=== PATIENT | male | born 1975 | race Caucasian/White ===

== ENCOUNTER 2020-06-06 07:12 | Observation (INO) | payer SELFPAY ==
[2020-06-06] VITALS (40 sets, daily range): BP systolic 115–158; BP diastolic 70–131; PULSE 83–163; RESP 13–28; TEMP 36.3–37; O2SAT 88–96; BMI 40.6
[2020-06-06 07:29] LABS: Basophils # 0.1 10^3/uL (0.0-0.1); Basophils % 0.6 %; Eosinophils % 0.2 %; Hematocrit 52.7 % (42.0-52.0); Hemoglobin 17.9 g/dL (11.7-16.6); Lymphocytes # 0.5 10^3/uL (0.8-4.8); Lymphocytes % 3.3 %; Mean Corpuscular Volume 88.4 fL (80-94); Mean Platelet Volume 10.4 fL (7.4-10.4); Monocytes # 0.9 10^3/uL (0.2-0.9); Monocytes % 6.2 %; Neutrophils # 12.33 10^3/uL (1.8-7.7); Neutrophils % 89.3 %; Nucleated Red Blood Cells % 0 %; Platelet Count 332 10^3/cmm (130-400); Red Blood Count 5.96 10^6/uL (4.1-5.3); Red Cell Distribution Width 11.8 % (12.1-15.1); White Blood Count 13.8 10^3/uL (4.0-10.0)
--- NOTE | 2020-06-06 07:29 | XRR_ITS ---
PROCEDURE INFORMATION: Exam: XR Chest Exam date and time: 06/06/2020 7:41 AM Age: 44 years old Clinical indication: Chest pain; Type not specified; Patient HX: Diarrhea, vomiting, bloated, abd pain; Additional info: Chest pain/tachycardia TECHNIQUE: Imaging protocol: XR of the chest Views: 1 view. COMPARISON: No relevant prior studies available. FINDINGS: Lungs: Low lung volumes. There is a streaky airspace opacity in the left lower lobe, which may represent atelectasis or pneumonia in the adequate clinical setting. No pleural effusion or pneumothorax. Pleural spaces: See Lungs finding. Heart/Mediastinum: Unremarkable. No cardiomegaly. Bones/joints: Unremarkable. XR/XR chest 1V portable [id number] IMPRESSION: Left lower lobe atelectasis versus pneumonia, clinical correlation is recommended.
[2020-06-06] MEDS: aspirin 81 mg Chew Tablet 324 MG PO (07:30)
--- NOTE | 2020-06-06 07:30 | ECG_ITS ---
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 Measurements Intervals [place] Rate: 160 P: NC: QRS: -12 QRSD: 105 T: 35 QT: 293 QTc: 478 Interpretive Statements ATRIAL FLUTTER/TACHYCARDIA WITH RAPID VENTRICULAR RESPONSE NONSPECIFIC T-WAVE ABNORMALITY CRITICAL TEST RESULT No previous ECG available for comparison Electronically Signed On 06-06-2020 19:15:20 CDT by Jeanmarie Calderon M.D. [id number]
[2020-06-06] MEDS: ondansetron 2 mg/ML SDV 2 mL 4 MG IVP (07:31)
[2020-06-06] MEDS: sodium chloride 0.9% 1,000 ML 999 ML IV ×2 (07:31→09:21)
--- NOTE | 2020-06-06 07:31 | CT_ITS ---
WS: [id number] CTA CHEST WITH CT ABDOMEN AND PELVIS. HISTORY: Abdominal pain with weakness. TECHNIQUE: CT angiogram is performed through the chest. Additional imaging is performed through the a bdomen and pelvis with IV contrast. Sagittal and coronal reformats have been submitted. MIP imaging also reviewed. All CT scans at [facility] use at least one of these dose optimization tech niques: automated exposure control; mA and/or kV adjustment per patient size (includes targeted exams where dose is matched to clinical indication); or iterative reconstruction. Contrast: Omnipaque 350; 95 cc IV. DLP: 4674.03 mGy.cm COMPARISON: None. Chest CTA: Suboptimal opacification of the pulmonary arteries despite multiple injection attempts. No rmal size pulmonary artery. There are no central filling defects. No RIGHT heart strain or secondary findings of pulmonary emboli. Normal-sized thoracic aorta. No dissection or aneurysm. Heart size is n ormal. No pericardial or pleural effusions. No adenopathy. There is mild motion artifact obscuring de tail of the lungs. No pulmonary nodule or mass. Bronchovascular tree is negative. RIGHT gynecomastia. Abdomen CT: Mild hepatic steatosis and hepatomegaly. Normal gallbladder, spleen and pancreas and adre nal glands. There are a few scattered hypodensities within each kidney which are too small to charact erize. There is a nonobstructing calcification inferior pole LEFT renal pelvis which is nonobstructin g. No significant perinephric stranding and no hydronephrosis. Aorta is normal. No adenopathy or asci pierre. There is marked fluid distention of the stomach. The appendix is normal. Very minimal fluid distentio n of the small bowel. Several diverticula in the colon. There is a focal area of very mild inflammati on and wall thickening involving the proximal sigmoid colon. Pelvic CT: No free fluid or adenopathy. Negative urinary bladder. Thoracolumbar scoliosis. No osteoblastic or osteolytic bone disease. CT/CT angio chest w abd pel w con IMPRESSION: 1. Limited evaluation of the pulmonary arteries. No large central pulmonary em bolism. 2. Mild distal colonic diverticulosis with a focal area of mild acute divertic ulitis in the proximal sigmoid. Recommend evaluation by colonoscopy after acut e episode has resolved to exclude underlying focal neoplasm. 3. No ascites. 4. Moderate fluid distention of the stomach. 5. Normal appendix. 6. Hepatic steatosis. 7. RIGHT gynecomastia.
--- NOTE | 2020-06-06 07:34 | ED_ITS ---
HPI - Abdominal Pain General: Chief Complaint: Abdominal Pain Stated Complaint: N/V/ DIARRHEA Time Seen by Provider: 06/06/20 07:15 History of Present Illness: HPI narrative: 44-year-old male presents emergency room with complaint of abdominal pain with nausea vomiting and diarrhea that started last night. Pain is very positional semireclined or bent over his best setting up rate seems to be the worst. On presentation his blood pressure is stable but he is very tachycardic with a sinus tachycardia. He has no real distinct chest pain. He is not been short of breath or wheezing. He denies any medic easy melena hematemesis or coffee-ground no dysuria urgency or frequency. MD elicited complaint: abdominal pain Onset (ago): hour(s) Pain Consistency: intermittent Location: Epigastric and LUQ Severity: severe Quality: cramping Radiation: none Migration to: no migration Exacerbating factors: nothing Relieving factors: nothing Associated Symptoms: Reports GI cramping, nausea, poor appetite and vomiting; Denies anorexia, belching, bloating, change in bowel habits, change in stool character, chills, coffee ground emesis, constipation, diarrhea, dyspepsia, dysuria, excessive flatus, fever(s), heartburn, hematochezia, hematuria, hematemesis, fecal incontinence, loose stools, melena and syncope Review of Systems Const: Denies: fever(s) or chills ENMT: Denies: throat pain, ear or mastoid pain, nasal discharge or nasal congestion Card: Denies: syncope Resp: Denies: dyspnea, productive cough or non-productive cough GI: Reports: nausea, vomiting and GI cramping; Denies: hematemesis, coffee ground emesis, heartburn, diarrhea, constipation, bloating, belching, excessive flatus, fecal incontinence, change in bowel habits, change in stool character, hematochezia or melena : Denies: dysuria or hematuria Skin/Breast: Denies: rash or pruritus PFSH ED PFSH: Medical History Sleep apnea Family History (Updated 06/06/20 @ 09:47 by Soren Ralph MD) Other Cancer Diabetes Social History (Updated 06/06/20 @ 09:48 by Soren Ralph MD) Smoking and tobacco status: never smoked Alcohol intake: never Physical Exam Const: COMMON NORMALS: average body habitus, patient oriented x3 and alert GENERAL APPEARANCE: cooperative, comfortable, well kempt and well developed NUTRITIONAL APPEARANCE: obese ORIENTATION/CONSCIOUSNESS: Yes awake, Yes oriented to person and Yes oriented to place HENMT: COMMON NORMALS: normocephalic, atraumatic and EAC's normal HEAD & SCALP: normocephalic and atraumatic EXTERNAL AUDITORY CANAL: EAC's normal Neck/C-Spine: COMMON NORMALS: no meningeal signs Resp: COMMON NORMALS: normal respiratory effort, No retractions, No use of accessory muscles and clear to auscultation bilaterally AUSCULTATION: clear to auscultation bilaterally Cardio: COMMON NORMALS: regular rhythm RATE: tachycardic RHYTHM: regular rhythm HEART SOUNDS: no murmurs GI: COMMON NORMALS: Normal to inspection, nondistended, normoactive bowel sounds present, Soft to palpation and No hepatosplenomegaly present PALPATION: Yes Soft to palpation and Yes No hepatosplenomegaly present : COMMON NORMALS: Yes no CVA tenderness BLADDER/KIDNEY EXAM: Yes no CVA tenderness Back/Pelvis: COMMON NORMALS: no CVA tenderness LUMBAR SPINE/LOWER BACK: Yes normal to inspection Extremity: NARRATIVE EXTREMITY EXAM: Femoral pulses equal bilaterally Neuro: COMMON NORMALS: patient oriented x3 SENSORIUM/ORIENTATION: Yes alert, Yes oriented to person and Yes oriented to place MENINGEAL SIGNS: Yes no meningeal signs Psych: APPEARANCE: Yes well kempt Skin: COMMON NORMALS: no rashes or lesions noted and turgor normal GENERAL SKIN EXAM: no rashes or lesions noted and turgor normal Course Vital Signs: Vital signs: Vital Signs Temperature 97.3 F L 06/06/20 07:15 Pulse Rate 122 H 06/06/20 08:35 Respiratory Rate 13 06/06/20 08:20 Blood Pressure 130/110 06/06/20 08:35 Pulse Oximetry 94 06/06/20 08:35 MDM - Abdominal Pain MDM Narrative: Medical decision making narrative: Patient appears to have a diverticulitis. Radiographically it appears rather mild. It is a little concerning with his tachycardia. His blood pressure initially was read as hypertensive however follow-up with a more properly fitting cough he is normotensive. His blood pressure did improve slightly with fluids. Initially was concerned about with his elevated blood pressure and his description of his pain dissection or aneurysm so he was started esmolol to control rate and blood pressure. When that was ruled out the esmolol was stopped. The initial EKG was read as A. fib flutter I do not believe he was ever in A. fib flutter and he did appear to have a P waves on that EKG. We are going to admit him with Cipro and Flagyl antiemetics as needed continue IV fluids we did get an ABG and serum ketones both of which are negative. His lactate is slightly elevated at 3.3. We have discussed with Dr. Mckeon will admit to the floor. His blood sugar is 3 approximately 370 concerning for diabetes will need to be rechecked in the presence of an acute infection cannot definitively diagnose diabetes at this point although it is highly likely discussed that with the patient as well. Lab Data: Labs: Lab Results 06/06/20 06/06/20 06/06/20 Range/Units 07:23 07:23 07:23 WBC 13.8 H (4.0-10.0) 10^3/ uL RBC 5.96 H (4.1-5.3) 10^6/u L Hgb 17.9 H (11.7-16.6) g/dL Hct 52.7 H (42.0-52.0) % MCV 88.4 (80-94) fL MCH 30.0 (28.0-34.0) pg MCHC 34.0 (30.0-36.0) g/dL RDW 11.8 L (12.1-15.1) % Plt Count 332 (130-400) 10^3/c mm MPV 10.4 (7.4-10.4) fL Neut % (Auto) 89.3 % Lymph % (Auto) 3.3 % Clarke % (Auto) 6.2 % Eos % (Auto) 0.2 % Baso % (Auto) 0.6 % Neut # (Auto) 12.33 H (1.8-7.7) 10^3/u L Lymph # (Auto) 0.5 L (0.8-4.8) 10^3/u L Clarke # (Auto) 0.9 (0.2-0.9) 10^3/u L Eos # (Auto) 0.0 (0.0-0.8) 10^3/u L Baso # (Auto) 0.1 (0.0-0.1) 10^3/u L Nucleated RBC % (a uto) 0 % Nucleated RBCs # 0.0 /100WBC Specimen Type Sample Site ABG pH (7.35-7.45) ABG pCO2 (35-45) mmHg ABG pO2 (80.0-100.0) mmH g ABG HCO3 (22-26) mmol/L ABG O2 Saturation ABG Base Excess (-2.0-2.0) mmol/ L Agapito Test A-a O2 Gradient (5-10) mmHg Hematocrit (42-52) % Hgb O2 Saturation (95-100) % Carboxyhemoglobin (0.4-20.1) %THgb Methemoglobin (0.4-1.5) % Total Hemoglobin (14-18) g/dL Ionized Calcium (1.1-1.4) mmol/L O2 Delivery Device Sling Operator ID Sodium 133 L (136-145) mmol/L Potassium 4.3 (3.5-5.1) mmol/L Chloride 98 (98-107) mmol/L Carbon Dioxide 20 L (22-29) mmol/L Anion Gap 19.3 H (5-19) BUN 12 (6-20) mg/dL Creatinine 0.5 L (0.7-1.2) mg/dL GFR Calculation 180.6 H (90-130) mL/min Glucose 367 H (65-115) mg/dL Calculated Osmolal ity 291 (285-295) mOsm/k g Lactic Acid (0.5-2.2) mmol/L Calcium 8.6 (8.5-10.5) mg/dL Total Bilirubin 1.1 (0.15-1.2) mg/dL AST 42 H (0-40) U/L ALT 88 H (0-41) U/L Alkaline Phosphata se 97 (40-130) IU/L Troponin T Baselin e (0-15) ng/L Troponin T 120 Min [place] (0-15) ng/L Delta Troponin T (0-10) ABS# C-Reactive Protein 16.7 H (0.0-4.9) mg/L Total Protein 7.9 (6.6-8.7) g/dL Albumin 4.1 (3.5-5.2) g/dL Globulin 3.8 (1.3-4.6) g/dL Lipase 12 L (13-60) U/L TSH (0.27-4.20) uIU/ mL Urine Color (Yellow) Urine Appearance (CLEAR) Urine pH (5-7) Ur Specific Gravit y (1.005-1.030) Urine Protein (Negative) Urine Glucose (UA) (Normal) Urine Ketones (Negative) Urine Blood (Negative) Urine Nitrate (Negative) Urine Bilirubin (Negative) Urine Urobilinogen (Negative) mg/dL Ur Leukocyte Sheela ase (Negative) Serum Ketones (Negative) Hepatitis A IgM Ab (Nonreactive) Hep Bs Antigen (Nonreactive) Hep B Core IgM Ab (Nonreactive) Hepatitis C Antibo dy (Nonreactive) 06/06/20 06/06/20 06/06/20 Range/Units 07:23 07:23 07:23 WBC (4.0-10.0) 10^3/ uL RBC (4.1-5.3) 10^6/u L Hgb (11.7-16.6) g/dL Hct (42.0-52.0) % MCV (80-94) fL MCH (28.0-34.0) pg MCHC (30.0-36.0) g/dL RDW (12.1-15.1) % Plt Count (130-400) 10^3/c mm MPV (7.4-10.4) fL Neut % (Auto) % Lymph % (Auto) % Clarke % (Auto) % Eos % (Auto) % Baso % (Auto) % Neut # (Auto) (1.8-7.7) 10^3/u L Lymph # (Auto) (0.8-4.8) 10^3/u L Clarke # (Auto) (0.2-0.9) 10^3/u L Eos # (Auto) (0.0-0.8) 10^3/u L Baso # (Auto) (0.0-0.1) 10^3/u L Nucleated RBC % (a uto) % Nucleated RBCs # /100WBC Specimen Type Sample Site ABG pH (7.35-7.45) ABG pCO2 (35-45) mmHg ABG pO2 (80.0-100.0) mmH g ABG HCO3 (22-26) mmol/L ABG O2 Saturation ABG Base Excess (-2.0-2.0) mmol/ L Agapito Test A-a O2 Gradient (5-10) mmHg Hematocrit (42-52) % Hgb O2 Saturation (95-100) % Carboxyhemoglobin (0.4-20.1) %THgb Methemoglobin (0.4-1.5) % Total Hemoglobin (14-18) g/dL Ionized Calcium (1.1-1.4) mmol/L O2 Delivery Device Sling Operator ID Sodium (136-145) mmol/L Potassium (3.5-5.1) mmol/L Chloride (98-107) mmol/L Carbon Dioxide (22-29) mmol/L Anion Gap (5-19) BUN (6-20) mg/dL Creatinine (0.7-1.2) mg/dL GFR Calculation (90-130) mL/min Glucose (65-115) mg/dL Calculated Osmolal ity (285-295) mOsm/k g Lactic Acid 3.3 H (0.5-2.2) mmol/L Calcium (8.5-10.5) mg/dL Total Bilirubin (0.15-1.2) mg/dL AST (0-40) U/L ALT (0-41) U/L Alkaline Phosphata se (40-130) IU/L Troponin T Baselin e 6 (0-15) ng/L Troponin T 120 Min [place] (0-15) ng/L Delta Troponin T (0-10) ABS# C-Reactive Protein (0.0-4.9) mg/L Total Protein (6.6-8.7) g/dL Albumin (3.5-5.2) g/dL Globulin (1.3-4.6) g/dL Lipase (13-60) U/L TSH (0.27-4.20) uIU/ mL Urine Color (Yellow) Urine Appearance (CLEAR) Urine pH (5-7) Ur Specific Gravit y (1.005-1.030) Urine Protein (Negative) Urine Glucose (UA) (Normal) Urine Ketones (Negative) Urine Blood (Negative) Urine Nitrate (Negative) Urine Bilirubin (Negative) Urine Urobilinogen (Negative) mg/dL Ur Leukocyte Sheela ase (Negative) Serum Ketones Negative (Negative) Hepatitis A IgM Ab (Nonreactive) Hep Bs Antigen (Nonreactive) Hep B Core IgM Ab (Nonreactive) Hepatitis C Antibo dy (Nonreactive) 06/06/20 06/06/20 06/06/20 Range/Units 07:23 07:23 08:24 WBC (4.0-10.0) 10^3/ uL RBC (4.1-5.3) 10^6/u L Hgb (11.7-16.6) g/dL Hct (42.0-52.0) % MCV (80-94) fL MCH (28.0-34.0) pg MCHC (30.0-36.0) g/dL RDW (12.1-15.1) % Plt Count (130-400) 10^3/c mm MPV (7.4-10.4) fL Neut % (Auto) % Lymph % (Auto) % Clarke % (Auto) % Eos % (Auto) % Baso % (Auto) % Neut # (Auto) (1.8-7.7) 10^3/u L Lymph # (Auto) (0.8-4.8) 10^3/u L Clarke # (Auto) (0.2-0.9) 10^3/u L Eos # (Auto) (0.0-0.8) 10^3/u L Baso # (Auto) (0.0-0.1) 10^3/u L Nucleated RBC % (a uto) % Nucleated RBCs # /100WBC Specimen Type Sample Site ABG pH (7.35-7.45) ABG pCO2 (35-45) mmHg ABG pO2 (80.0-100.0) mmH g ABG HCO3 (22-26) mmol/L ABG O2 Saturation ABG Base Excess (-2.0-2.0) mmol/ L Agapito Test A-a O2 Gradient (5-10) mmHg Hematocrit (42-52) % Hgb O2 Saturation (95-100) % Carboxyhemoglobin (0.4-20.1) %THgb Methemoglobin (0.4-1.5) % Total Hemoglobin (14-18) g/dL Ionized Calcium (1.1-1.4) mmol/L O2 Delivery Device Sling Operator ID Sodium (136-145) mmol/L Potassium (3.5-5.1) mmol/L Chloride (98-107) mmol/L Carbon Dioxide (22-29) mmol/L Anion Gap (5-19) BUN (6-20) mg/dL Creatinine (0.7-1.2) mg/dL GFR Calculation (90-130) mL/min Glucose (65-115) mg/dL Calculated Osmolal ity (285-295) mOsm/k g Lactic Acid (0.5-2.2) mmol/L Calcium (8.5-10.5) mg/dL Total Bilirubin (0.15-1.2) mg/dL AST (0-40) U/L ALT (0-41) U/L Alkaline Phosphata se (40-130) IU/L Troponin T Baselin e (0-15) ng/L Troponin T 120 Min [place] (0-15) ng/L Delta Troponin T (0-10) ABS# C-Reactive Protein (0.0-4.9) mg/L Total Protein (6.6-8.7) g/dL Albumin (3.5-5.2) g/dL Globulin (1.3-4.6) g/dL Lipase (13-60) U/L TSH 0.50 (0.27-4.20) uIU/ mL Urine Color Yellow (Yellow) Urine Appearance Clear (CLEAR) Urine pH 6.5 (5-7) Ur Specific Gravit y 1.000 L (1.005-1.030) Urine Protein Neg (Negative) Urine Glucose (UA) 4+ H (Normal) Urine Ketones 2+ H (Negative) Urine Blood Neg (Negative) Urine Nitrate Negative (Negative) Urine Bilirubin Neg (Negative) Urine Urobilinogen Norm (Negative) mg/dL Ur Leukocyte Sheela ase Negative (Negative) Serum Ketones (Negative) Hepatitis A IgM Ab Non-reactive (Nonreactive) Hep Bs Antigen Non-reactive (Nonreactive) Hep B Core IgM Ab Non-reactive (Nonreactive) Hepatitis C Antibo dy Non-reactive (Nonreactive) 06/06/20 06/06/20 Range/Units 09:05 09:07 WBC (4.0-10.0) 10^3/ uL RBC (4.1-5.3) 10^6/u L Hgb (11.7-16.6) g/dL Hct (42.0-52.0) % MCV (80-94) fL MCH (28.0-34.0) pg MCHC (30.0-36.0) g/dL RDW (12.1-15.1) % Plt Count (130-400) 10^3/c mm MPV (7.4-10.4) fL Neut % (Auto) % Lymph % (Auto) % Clarke % (Auto) % Eos % (Auto) % Baso % (Auto) % Neut # (Auto) (1.8-7.7) 10^3/u L Lymph # (Auto) (0.8-4.8) 10^3/u L Clarke # (Auto) (0.2-0.9) 10^3/u L Eos # (Auto) (0.0-0.8) 10^3/u L Baso # (Auto) (0.0-0.1) 10^3/u L Nucleated RBC % (a uto) % Nucleated RBCs # /100WBC Specimen Type Arterial Sample Site Radial, left ABG pH 7.42 (7.35-7.45) ABG pCO2 33.9 L (35-45) mmHg ABG pO2 72.7 L (80.0-100.0) mmH g ABG HCO3 21.7 L (22-26) mmol/L ABG O2 Saturation 95.8 ABG Base Excess -2.0 (-2.0-2.0) mmol/ L Agapito Test Pos A-a O2 Gradient 4.6 L (5-10) mmHg Hematocrit 53.4 H (42-52) % Hgb O2 Saturation 94.1 L (95-100) % Carboxyhemoglobin 0.8 (0.4-20.1) %THgb Methemoglobin 0.9 (0.4-1.5) % Total Hemoglobin 17.4 (14-18) g/dL Ionized Calcium 1.1 (1.1-1.4) mmol/L O2 Delivery Device Room air Sling Operator ID Cak Sodium 135.0 (136-145) mmol/L Potassium 4.6 (3.5-5.1) mmol/L Chloride (98-107) mmol/L Carbon Dioxide (22-29) mmol/L Anion Gap (5-19) BUN (6-20) mg/dL Creatinine (0.7-1.2) mg/dL GFR Calculation (90-130) mL/min Glucose 361.0 H (65-115) mg/dL Calculated Osmolal ity (285-295) mOsm/k g Lactic Acid (0.5-2.2) mmol/L Calcium (8.5-10.5) mg/dL Total Bilirubin (0.15-1.2) mg/dL AST (0-40) U/L ALT (0-41) U/L Alkaline Phosphata se (40-130) IU/L Troponin T Baselin e (0-15) ng/L Troponin T 120 Min [place] 6.00 (0-15) ng/L Delta Troponin T 0 (0-10) ABS# C-Reactive Protein (0.0-4.9) mg/L Total Protein (6.6-8.7) g/dL Albumin (3.5-5.2) g/dL Globulin (1.3-4.6) g/dL Lipase (13-60) U/L TSH (0.27-4.20) uIU/ mL Urine Color (Yellow) Urine Appearance (CLEAR) Urine pH (5-7) Ur Specific Gravit y (1.005-1.030) Urine Protein (Negative) Urine Glucose (UA) (Normal) Urine Ketones (Negative) Urine Blood (Negative) Urine Nitrate (Negative) Urine Bilirubin (Negative) Urine Urobilinogen (Negative) mg/dL Ur Leukocyte Sheela ase (Negative) Serum Ketones (Negative) Hepatitis A IgM Ab (Nonreactive) Hep Bs Antigen (Nonreactive) Hep B Core IgM Ab (Nonreactive) Hepatitis C Antibo dy (Nonreactive) Discharge Plan Discharge Patient Disposition: Admitted As Inpatient Clinical Impression: Diverticulitis, Acute hyperglycemia Condition: Stable Coding Level of Care Code ED Frit Burner for Tresg Fwd Exam Comprehensive
[2020-06-06 07:45] LABS: Alanine Aminotransferase 88 U/L (0-41); Albumin Level 4.1 g/dL (3.5-5.2); Alkaline Phosphatase 97 IU/L (40-130); Anion Gap 19.3 (5-19); Aspartate Amino Transferase 42 U/L (0-40); Blood Urea Nitrogen 12 mg/dL (6-20); Calcium 8.6 mg/dL (8.5-10.5); Carbon Dioxide 20 mmol/L (22-29); Chloride 98 mmol/L (98-107); Globulin 3.8 g/dL (1.3-4.6); Glomerular Filtration Rate 180.6 mL/min (90-130); Glucose 367 mg/dL (65-115); Lipase 12 U/L (13-60); Osmolality Calculated 291 mOsm/kg (285-295); Potassium 4.3 mmol/L (3.5-5.1); Sodium 133 mmol/L (136-145); Total Bilirubin 1.1 mg/dL (0.15-1.2); Total Protein 7.9 g/dL (6.6-8.7)
[2020-06-06 08:00] LABS: C Reactive Protein 16.7 mg/L (0.0-4.9)
[2020-06-06 08:03] LABS: Troponin(5th) Baseline 6 ng/L (0-15)
[2020-06-06] MEDS: iohexol 350 mg/mL 100 mL Btl IV ×2 (08:08→08:09)
[2020-06-06] MEDS: esmolol drip 2,500 MG/250 ML PREMIX 40.8 MG IV (08:10)
[2020-06-06 08:30] LABS: Add Urine Microscopic? NO
[2020-06-06 08:35] LABS: Bilirubin Urine Neg (Negative); Blood Urine Neg (Negative); Glucose Urine UA 4+ (Normal); Ketones Urine 2+ (Negative); Leukocyte Esterase Urine Negative (Negative); Nitrate Urine Negative (Negative); Protein Urine Neg (Negative); Urine Appearance Clear (CLEAR); Urine Color Yellow (Yellow); Urobilinogen Urine Norm (Negative); pH Urine 6.5 (5-7)
[2020-06-06 08:54] LABS: Lactic Sepsis W/Reflex 3.3 mmol/L (0.5-2.2)
--- NOTE | 2020-06-06 09:05 | PC.NURSE ---
Blood cultures in lab
[2020-06-06 09:18] LABS: ABG PCO2 33.9 mmHg (35-45); ABG PH Result 7.42 (7.35-7.45); Alveolar-Arterial Oxygen Gradi 4.6 mmHg (5-10); Arterial Blood Gas Hematocrit 53.4 % (42-52); Blood Gas Allen Test Pos; Blood Gas Operator Identificat CAK; Blood Gas Sample Site Radial, left; Blood Gas Sample Type Arterial; Carboxyhemoglobin 0.8 %THgb (0.4-20.1); HCO3 ABG 21.7 mmol/L (22-26); HGB O2 Sat 94.1 % (95-100); Ionized Calcium Level - ABG 1.1 mmol/L (1.1-1.4); Methemoglobin 0.9 % (0.4-1.5); Oxygen Device ROOM AIR; Oxygen Saturation ABG 95.8; PO2 ABG 72.7 mmHg (80.0-100.0); Potassium Level - ABG 4.6 mmol/L (3.5-5.0); Total Hemoglobin 17.4 g/dL (14-18)
[2020-06-06] MEDS: metroNIDAZOLE IV 500 MG/100 ML PREMIX 100 MG IV ×3 (09:21→22:32)
[2020-06-06] MEDS: ciprofloxacin 400 MG/200 ML PREMIX 200 MG IV ×2 (09:21→21:22)
[2020-06-06] MEDS: metoprolol tartrate 50 mg Tablet PO (09:25)
[2020-06-06 09:26] LABS: Ketone (Acetest) Serum Negative (Negative)
[2020-06-06] MEDS: insulin regular-human 100 units/1 mL 10 UNIT IVP (09:30)
--- NOTE | 2020-06-06 09:30 | ECG_ITS ---
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 Measurements Intervals [place] Rate: 148 P: 46 MO: 110 QRS: -14 QRSD: 110 T: 27 QT: 324 QTc: 510 Interpretive Statements SINUS TACHYCARDIA WITH SHORT MO INTERVAL, POSSIBLE ATRIAL FLUTTER MINIMAL VOLTAGE CRITERIA FOR LVH, CONSIDER NORMAL VARIANT [MEETS CRITERIA IN ONE OF: R(aVL), S(V1), R(V5), R(V5/V6)+S(V1)] ABNORMAL RHYTHM ECG Compared to ECG 06/06/2020 07:27:23 T-wave abnormality no longer present Electronically Signed On 06-06-2020 19:22:19 CDT by Jeanmarie Calderon M.D. [id number]
[2020-06-06 09:34] LABS: Troponin 5 2HR Delta 0 ABS# (0-10)
--- NOTE | 2020-06-06 09:44 | P.HP_ITS ---
Providers/Chief Complaint Chief Complaint: N/V/ DIARRHEA History of Present Illness Radha Lewis is a 44 year old male who presents to the emergency department with complaints of abdominal pain. He states since around midnight, 8 hours ago, he started having abdominal pain vomiting and diarrhea. He describes the abdominal pain is occasionally crampy, and changes somewhat with position changes. He states he has had over 15 episodes of vomiting as well as diarrhea stool. He denies any blood in his emesis, most of it being meatloaf he had the night before. He reports no blood in his stool or black or tarry stool. He states the abdominal pain is central and diffuse. It is better with the treatment in the emergency department. He has not been able to tolerate any liquids since starting to vomit. He has had some chills but no documented fever. He denies any prior history of an episode like this. He has had no chest discomfort. He reports he has not seen a doctor in many years as he does not have insurance but does not believe he has any medical conditions. He is surprised when he learns that sugar is elevated. While in the emergency department it was noted his heart rate was elevated around 160. There was concern that this might be atrial flutter and esmolol was initiated. This was found to be sinus tachycardia on further investigation of rhythm when esmolol was started and this was discontinued. He has received saline, and medication for nausea. Cipro and Flagyl have been ordered for colitis. I believe he is also received a dose of metoprolol. He reports his mother has been ill this morning as well with some nausea. He has had no recent travel. House as well water. Review of Systems General: Reports: 10 or more systems reviewed and unremarkable except in HPI and below Const: Reports: chills; Denies: fever(s) Eyes: Denies: change in vision ENMT: Denies: throat pain Card: Denies: chest pain Resp: Denies: dyspnea GI: Reports: abdominal pain, nausea, vomiting and diarrhea; Denies: hematemesis, hematochezia or melena : Denies: flank pain or difficulty urinating Musc: Denies: neck pain Skin/Breast: Denies: rash Neuro: Denies: headache(s) Psych: Reports: anxiety and depression Endo: Denies: polyuria [place]/Lymph: Denies: easy bruising All/Imm: Denies: urticaria Medications/Allergies Allergies Allergy/AdvReac Type Severity Reaction Status Date / Time No Known Allergies Allergy Verified 06/06/20 07:24 PFSH Acute PFSH: Medical History Sleep apnea Family History (Updated 06/06/20 @ 09:47 by Soren Ralph MD) Other Cancer Diabetes Social History (Updated 06/06/20 @ 09:48 by Soren Ralph MD) Smoking and tobacco status: never smoked Alcohol intake: never Supplemental PFSH Information: Denies any history of surgery or past medical problems. Vitals/I&O/Wt Last Vital Signs Temp 97.3 F L 06/06/20 07:15 Pulse 122 H 06/06/20 08:35 Resp 13 06/06/20 08:20 BP 130/110 06/06/20 08:35 Pulse Ox 94 06/06/20 08:35 06/05/20 06/06/20 06/06/20 22:59 06:59 14:59 Intake Total 1027.2 / 1027.2 Balance 1027.2 / 1027.2 Weight last 48 hrs Weight 136.078 kg Physical Exam Narrative: EXAM NARRATIVE: General exam is a male in no apparent distress, obese HEENT: Pupils equally round. Oropharynx with dry mucous membranes. Poor dentition. Neck is supple no lymphadenopathy or thyromegaly Cardiovascular tachycardic, no murmur Lungs clear no wheezing or crackles Abdomen is soft with positive bowel sounds. Some slight generalized currently mild tenderness is present periumbilically. was deferred Extremities no cyanosis clubbing or edema, cap refill brisk Skin no rash Neuro no obvious focal deficits Data : 06/06/20 07:23 06/06/20 07:23 Micro: Microbiology 06/06/20 09:05 Blood Culture - Preliminary Blood SPECIMEN COLLECTED 06/06/20 07:23 Blood Culture - Preliminary Blood SPECIMEN COLLECTED Other data: ABG demonstrates a pH of 7.42, PCO2 of 34, PO2 of 73 on room air. Lactic acid is 3.3 AST 42 ALT 88 and total bilirubin 1.1 Lipase 12 Urinalysis demonstrates 4+ glucose and 2+ ketones CT abdomen and pelvis demonstrates limited evaluation of pulmonary arteries and no obvious PE Distal colonic diverticulosis with focal area of mild acute diverticulitis proximal sigmoid Fluid distention of the stomach Fatty liver Right gynecomastia Chest x-ray no obvious infiltrate Blood culture has been obtained Initial EKG demonstrated narrow complex tachycardia of 160. Nonspecific ST-T wave changes Lactate elevated at 3.3 A&P Assessment and plan (1) Diverticulitis: Concern of diverticulitis on CT scan. Patient certainly with diverticulosis. However, history is most consistent with gastroenteritis or possibly food poisoning. Hydration IV antibiotics consisting of Cipro and Flagyl Stool PCR Nausea control I suspect with all of the above his heart rate will decrease(significant tachycardia on arrival) Status: Acute (2) Acute hyperglycemia: No evidence of DKA Mild sliding scale insulin Check hemoglobin A1c, TSH Status: Acute (3) Sleep apnea: Encourage him to get a primary care provider for this can be treated Status: Acute (4) Depression: Referral to behavioral health care on discharge. Patient reported depression and anxiety on review of systems. No homicidal or suicidal ideation. Status: Acute Additional A&P Information Full code Low risk for DVT currently Attestations Medical Necessity Statement*: At this point will need less than 2 midnight stay for treatment of vomiting and diarrhea. Time Spent in Patient Care: Greater than 35 minutes Coding Level of Care Code Acute Communications Scientist for [facility] Fwd Diagnoses Diverticulitis K57.92 Acute hyperglycemia R73.9 Sleep apnea G47.30 Depression F32.9
[2020-06-06 09:47] LABS: Hepatitis A Antibody IgM Non-Reactive (Nonreactive); Hepatitis B Core IgM Non-Reactive (Nonreactive); Hepatitis B Surface Antigen Non-Reactive (Nonreactive); Hepatitis C Virus Antibody Non-Reactive (Nonreactive)
[2020-06-06 09:59] LABS: Estmated Average Glucose 246; Hemoglobin A1C 10.2 % (4.0-6.0)
[2020-06-06 10:30] LABS: Reflex Lactate Order REFLEX LACTIC ORDERD
[2020-06-06 11:27] LABS: Lactic Acid level (Lactate) 3.3 mmol/L (0.5-2.2)
[2020-06-06] MEDS: sodium chloride 0.9% 1,000 ML 150 ML IV ×2 (11:31→21:22)
[2020-06-06 12:33] LABS: Glucose Point of Care 308 mg/dL (70-110)
--- NOTE | 2020-06-06 13:30 | ECG_ITS ---
[facility] ED Test Date: 2020-06-06 Pat Name: Radha Lewis Department: Room: 276 Gender: Male Closing Coordinator: : 1975 Requested By: Fermín Gardiner Order Number: [id number] Hema MD: Anya Philip M.D. Measurements Intervals [place] Rate: 92 P: 32 IA: 170 QRS: 0 QRSD: 117 T: 23 QT: 326 QTc: 405 Interpretive Statements SINUS RHYTHM MODERATE INTRAVENTRICULAR CONDUCTION DELAY [110+ ms QRS DURATION] NONSPECIFIC ST & T-WAVE ABNORMALITY Compared to ECG 06/06/2020 09:33:40 Intraventricular conduction delay now present T-wave abnormality now present Electronically Signed On 06-09-2020 17:28:56 CDT by Anya Philip M.D. [id number]
[2020-06-06 14:03] LABS: Troponin 5 6HR Delta 0 ng/L (0-12)
[2020-06-06 16:25] LABS: Glucose Point of Care 226 mg/dL (70-110)
[2020-06-06] MEDS: acetaminophen 325 mg Tablet 650 MG PO (16:34)
--- NOTE | 2020-06-06 19:17 | PC.NURSE ---
Report to Ynes MOODY at this time.
[2020-06-06 21:46] LABS: Glucose Point of Care 162 mg/dL (70-110)
[2020-06-07] VITALS: BP 131/84; PULSE 89; RESP 18; TEMP 36.8; O2SAT 93
[2020-06-07] MEDS: metroNIDAZOLE IV 500 MG/100 ML PREMIX 100 MG IV ×2 (02:49→10:10)
[2020-06-07 04:00] VITALS: BP 114/82; PULSE 90; RESP 18; TEMP 37; O2SAT 93
[2020-06-07 06:23] LABS: Basophils # 0.1 10^3/uL (0.0-0.1); Basophils % 0.8 %; Eosinophils # 0.2 10^3/uL (0.0-0.8); Eosinophils % 2.5 %; Hemoglobin 14.8 g/dL (11.7-16.6); Lymphocytes # 1.4 10^3/uL (0.8-4.8); Lymphocytes % 21.8 %; Mean Corpuscular HGB Conc 32.9 g/dL (30.0-36.0); Mean Corpuscular Hemoglobin 30.4 pg (28.0-34.0); Mean Corpuscular Volume 92.4 fL (80-94); Monocytes # 0.8 10^3/uL (0.2-0.9); Monocytes % 11.8 %; Neutrophils % 62.8 %; Nucleated Red Blood Cells % 0 %; Platelet Count 213 10^3/cmm (130-400); Red Blood Count 4.87 10^6/uL (4.1-5.3); Red Cell Distribution Width 12.4 % (12.1-15.1); White Blood Count 6.5 10^3/uL (4.0-10.0)
[2020-06-07 06:44] LABS: Alanine Aminotransferase 51 U/L (0-41); Alkaline Phosphatase 64 IU/L (40-130); Anion Gap 11.5 (5-19); Aspartate Amino Transferase 28 U/L (0-40); Blood Urea Nitrogen 8 mg/dL (6-20); Calcium 7.7 mg/dL (8.5-10.5); Carbon Dioxide 24 mmol/L (22-29); Chloride 102 mmol/L (98-107); Globulin 3.1 g/dL (1.3-4.6); Glomerular Filtration Rate 233.7 mL/min (90-130); Glucose 218 mg/dL (65-115); Osmolality Calculated 283 mOsm/kg (285-295); Potassium 3.5 mmol/L (3.5-5.1); Sodium 134 mmol/L (136-145); Total Bilirubin 0.6 mg/dL (0.15-1.2); Total Protein 6.1 g/dL (6.6-8.7)
[2020-06-07 06:48] LABS: Glucose Point of Care 186 mg/dL (70-110)
[2020-06-07 08:00] VITALS: BP 134/86; PULSE 78; RESP 18; TEMP 36.5; O2SAT 86
[2020-06-07] MEDS: ciprofloxacin 400 MG/200 ML PREMIX 200 MG IV (08:32)
[2020-06-07] MEDS: acetaminophen 325 mg Tablet 650 MG PO (08:37)
[2020-06-07] MEDS: pantoprazole DR 40 mg Tablet PO (08:38)
--- NOTE | 2020-06-07 09:20 | P.DS_ITS ---
Discharge Providers Date of Admission: 06/06/20 09:08 Date of Discharge: June 07, 2020 Attending Provider at Admission: Soren Ralph MD Attending Provider at Discharge: Soern Ralph MD Diagnoses at Discharge Discharge Diagnosis (1) Diverticulitis: Status: Acute (2) Acute hyperglycemia: Status: Acute (3) Sleep apnea: Status: Acute (4) Depression: Status: Acute Reason for Visit Reason for Visit: N/V/ DIARRHEA Hospital Course Hospital Course Radha is a 44-year-old white male who presented to the hospital with complaints of abdominal pain and vomiting emergency department he was noted to be tachycardic, and CT scan demonstrated diverticulitis. He was placed on Cipro, and Flagyl. He was rehydrated. The following day his abdominal pain had resolved. White blood cell count had resolved. He had had no fevers. He was tolerating a diet. It was thought he could discharge to home, and have further follow-up as an outpatient. It was also identified that he had diabetes. Metformin will be initiated as an outpatient after the appropriate waiting interval following contrast dye. I discussed with him the possible need for colonoscopy in 4 to 6 weeks which she will discuss with his primary care provider when this is arranged. Hepatitis screening was also done in the hospital and negative. Lipase was checked and normal. Physical Exam Narrative: EXAM NARRATIVE: General exam no apparent distress Cardiovascular regular rate and rhythm without murmur Lungs clear no wheezing or crackles Abdomen is soft with positive bowel sounds Extremities no cyanosis clubbing or edema Discharge Data Data Completed and Pending: Completed Studies During Hospitalization Category Date Time Status CT angio chest w abd pel w con Stat Cat Scan 06/06/20 07:31 Completed XR chest 1V addie ble [id number] Stat Exams 06/06/20 07:29 Completed Pending at discharge Category Date Time Status Blood Culture Sta t Lab 06/06/20 09:05 Results Enteric Bacterial Panel by PCR Rout ine Lab 06/06/20 09:48 Uncollected Labs from last 24 hours 06/07/20 06/07/20 06/07/20 06:23 05:43 05:43 WBC 6.5 RBC 4.87 Hgb 14.8 Hct 45.0 MCV 92.4 MCH 30.4 MCHC 32.9 RDW 12.4 Plt Count 213 MPV 10.0 Neut % (Auto) 62.8 Lymph % (Auto) 21.8 [place] % (Auto) 11.8 Eos % (Auto) 2.5 Baso % (Auto) 0.8 Neut # (Auto) 4.10 Lymph # (Auto) 1.4 [place] # (Auto) 0.8 Eos # (Auto) 0.2 Baso # (Auto) 0.1 Nucleated RBC % (a uto) 0 Nucleated RBCs # 0.0 Sodium 134 L Potassium 3.5 Chloride 102 Carbon Dioxide 24 Anion Gap 11.5 BUN 8 Creatinine 0.4 L GFR Calculation 233.7 H Glucose 218 H POC Glucose 186 H Estimat Average Gl ucose Hemoglobin A1c Calculated Osmolal ity 283 L Lactic Acid (Sepsi s) Calcium 7.7 L Total Bilirubin 0.6 AST 28 ALT 51 H Alkaline Phosphata se 64 Troponin T 120 Min [place] Delta Troponin T Troponin T Hi Sens 6Hr Troponin T Hi Sens 6Hr Delta Total Protein 6.1 L D Albumin 3.0 L Globulin 3.1 TSH Serum Ketones Hepatitis A IgM Ab Hep Bs Antigen Hep B Core IgM Ab Hepatitis C Antibo dy 06/06/20 06/06/20 06/06/20 21:27 16:20 13:30 WBC RBC Hgb Hct MCV MCH MCHC RDW Plt Count MPV Neut % (Auto) Lymph % (Auto) [place] % (Auto) Eos % (Auto) Baso % (Auto) Neut # (Auto) Lymph # (Auto) [place] # (Auto) Eos # (Auto) Baso # (Auto) Nucleated RBC % (a uto) Nucleated RBCs # Sodium Potassium Chloride Carbon Dioxide Anion Gap BUN Creatinine GFR Calculation Glucose POC Glucose 162 H 226 H Estimat Average Gl ucose Hemoglobin A1c Calculated Osmolal ity Lactic Acid (Sepsi s) Calcium Total Bilirubin AST ALT Alkaline Phosphata se Troponin T 120 Min [place] Delta Troponin T Troponin T Hi Sens 6Hr 6.00 Troponin T Hi Sens 6Hr Delta 0 Total Protein Albumin Globulin TSH Serum Ketones Hepatitis A IgM Ab Hep Bs Antigen Hep B Core IgM Ab Hepatitis C Antibo dy 06/06/20 06/06/20 06/06/20 12:29 11:02 09:05 WBC RBC Hgb Hct MCV MCH MCHC RDW Plt Count MPV Neut % (Auto) Lymph % (Auto) [place] % (Auto) Eos % (Auto) Baso % (Auto) Neut # (Auto) Lymph # (Auto) [place] # (Auto) Eos # (Auto) Baso # (Auto) Nucleated RBC % (a uto) Nucleated RBCs # Sodium Potassium Chloride Carbon Dioxide Anion Gap BUN Creatinine GFR Calculation Glucose POC Glucose 308 H Estimat Average Gl ucose Hemoglobin A1c Calculated Osmolal ity Lactic Acid (Sepsi s) 3.3 H Calcium Total Bilirubin AST ALT Alkaline Phosphata se Troponin T 120 Min [place] 6.00 Delta Troponin T 0 Troponin T Hi Sens 6Hr Troponin T Hi Sens 6Hr Delta Total Protein Albumin Globulin TSH Serum Ketones Hepatitis A IgM Ab Hep Bs Antigen Hep B Core IgM Ab Hepatitis C Antibo dy 06/06/20 06/06/20 06/06/20 07:23 07:23 07:23 WBC RBC Hgb Hct MCV MCH MCHC RDW Plt Count MPV Neut % (Auto) Lymph % (Auto) [place] % (Auto) Eos % (Auto) Baso % (Auto) Neut # (Auto) Lymph # (Auto) [place] # (Auto) Eos # (Auto) Baso # (Auto) Nucleated RBC % (a uto) Nucleated RBCs # Sodium Potassium Chloride Carbon Dioxide Anion Gap BUN Creatinine GFR Calculation Glucose POC Glucose Estimat Average Gl ucose 246 Hemoglobin A1c 10.2 H Calculated Osmolal ity Lactic Acid (Sepsi s) Calcium Total Bilirubin AST ALT Alkaline Phosphata se Troponin T 120 Min [place] Delta Troponin T Troponin T Hi Sens 6Hr Troponin T Hi Sens 6Hr [place] Total Protein Albumin Globulin TSH 0.50 Serum Ketones Hepatitis A IgM Ab Non-reactive Hep Bs Antigen Non-reactive Hep B Core IgM Ab Non-reactive Hepatitis C Antibo dy Non-reactive 06/06/20 07:23 WBC RBC Hgb Hct MCV MCH MCHC RDW Plt Count MPV Neut % (Auto) Lymph % (Auto) [place] % (Auto) Eos % (Auto) Baso % (Auto) Neut # (Auto) Lymph # (Auto) [place] # (Auto) Eos # (Auto) Baso # (Auto) Nucleated RBC % (a uto) Nucleated RBCs # Sodium Potassium Chloride Carbon Dioxide Anion Gap BUN Creatinine GFR Calculation Glucose POC Glucose Estimat Average Gl ucose Hemoglobin A1c Calculated Osmolal ity Lactic Acid (Sepsi s) Calcium Total Bilirubin AST ALT Alkaline Phosphata se Troponin T 120 Min [place] Delta Troponin T Troponin T Hi Sens 6Hr Troponin T Hi Sens 6Hr [place] Total Protein Albumin Globulin TSH Serum Ketones Negative Hepatitis A IgM Ab Hep Bs Antigen Hep B Core IgM Ab Hepatitis C Antibo dy Vitals: Last Vital Signs Temp 98.6 F 06/07/20 04:00 Pulse 90 06/07/20 04:00 Resp 18 06/07/20 04:00 BP 114/82 06/07/20 04:00 Pulse Ox 93 06/07/20 04:00 Discharge Plan Discharge Patient Disposition: Home Condition: Stable Prescriptions: New pantoprazole 40 mg Tablet,Delayed Release (Dr/Ec) 40 mg PO DAILY Qty: 30 RF: 0 Flagyl 500 mg tablet 500 mg PO BID 9 Days Qty: 36 RF: 0 Cipro 500 mg tablet 500 mg PO BID Qty: 18 RF: 0 metformin 500 mg tablet 500 mg PO BID Qty: 60 RF: 0 Discontinued ibuprofen 200 mg Tablet 200 - 400 mg PO Q6H PRN (Reason: Pain) RF: 0 Discharge Orders: Discharge Order (Routine); Ordered 06/07/20 Ordered By: Soren Rlaph Referrals: Dilshad De La O MD [Referring] - 06/15/20 10:00 am (PLEASE BRING 2019 TAXES OR 2019 TAXES) Discharge Diet: Diabetic Discharge Activity: Increase activity as tolerated Patient Instructions: Ciprofloxacin (By mouth), Metronidazole (By mouth), Metformin (By mouth), Pantoprazole (By mouth) Activity Restrictions/Additional Instructions: Please use med to beds, requested by patient. Do not start Metformin until June 09 secondary to contrast dye used in CT Take all medicine as prescribed Follow-up with primary care provider 3 to 5 days. Discharge planning to arrange for primary care provider prior to discharge. Consideration of endoscopy 4 to 6 weeks for follow-up of episode of diverticulitis Primary care provider will offer continued care management for diabetes, and consideration of exploration of sleep apnea. Discharge Attestations Time Spent in Discharge Care*: greater than 30 min Quality Metrics Clinical Quality Measures During this hospital stay, did patient experience: None Coding Level of Care Code Acute Chg FW DC note Diagnoses Diverticulitis K57.92 Acute hyperglycemia R73.9 Sleep apnea G47.30 Depression F32.9
[2020-06-07 09:38] VITALS: BP 134/86; PULSE 78; RESP 18; TEMP 36.5; O2SAT 92
[2020-06-07 11:27] LABS: Glucose Point of Care 213 mg/dL (70-110)
[2020-06-07 11:47] VITALS: BP 130/82; PULSE 82; RESP 18; TEMP 36.6; O2SAT 92
--- NOTE | 2020-06-07 12:32 | PC.CHAP ---
Pastoral Care Encounter/Spiritual Assessment Type of Contact [] Declined animal services officer visit [] Patient/Family/Request visit [] Outpatient visit [] Follow-up visit [] Physician referral [] Code/Alert [x] Routine visit [] Staff referral [] Actively dying [] Patient sleeping [] Family support [] [] Out of room [] Palliative care [] [] Receiving care in room [] Pre-surgical visit [] Trauma [] Long length of stay [] ICU visit [] Other: Relational/Emotional Strength [] Patient feels connected with others/family/visitors/staff [] Distress [] Loneliness/isolation [] Abandonment Spirituality of Patient [] Person of [place] [] Attends Rastafarian of their [place] [] Believes in Prayer [] Reads Bible or Spiritism materials [] There are Spiritual issues to be addressed Drawing Machine Operator Interventions [] Prayer [] Active listening [] Non-anxious presence [] Spiritual/emotional support [] Crisis/trauma care [] Spiritual counseling [] Bereavement support [] Provided bereavement packet [] Provided Bible/devotional materials [] Provided toy/stuffed animal, coloring book to patient or family member [] Provided Communion [] Anointing/[place]acoima [] Salvation [] Completed spiritual assessment [] Other: Impact on Illness or Injury [] Angry [] Fearful [] Anxious [] Often cries [] Exhaustion [] Unable to work [] Unable to attend uatsdin [] Unable to walk/stand [] Unable to read [] Unable to drive [] Unable to eat/drink [] Unable to sleep [] Unable to be with family [] Patient intubated [] Other: Summary Time spent with patient
--- NOTE | 2020-06-08 08:55 | PC.NUTR ---
NUTR CONSULT: Education received for new diagnosis of diabetes. Pt has discharged with 24 hrs. Will attempt to make contact by phone and offer education by mail.
== END 2020-06-07 13:16 | disposition home or self-care (01) ==
LOC: ER 09:54 → MEDSURG 19:31
PROVIDERS: Admitting Provider Internal Medicine; Emergency Provider Family Medicine; Visit Provider Internal Medicine
DX: K57.92 Diverticulitis of intestine, part unspecified, without perforation or abscess without bleeding (principal); R73.9 Hyperglycemia, unspecified; G47.30 Sleep apnea, unspecified; F32.9 Major depressive disorder, single episode, unspecified
CPT/HCPCS: 36415; 36416; 36600; 71045; 71275; 74177; 80051; 80053; 80074; 81003; 82009; 82330; 82805; 82962; 83036; 83605; 83690; 84443; 84484; 85025; 86140; 87040; 93005; 96365; 96366; 96367; 96372; 96375; 99285; G0378; J0744; J1815; J2405; J3490; J7030; Q9967; S0030